=== PATIENT | male | born 1980 | race Caucasian/White ===

== ENCOUNTER 2018-02-24 11:05 | Emergency (ER) | payer MEDICAID ==
[~2018-02-24] VITALS: Ht 182.9 cm; Wt 102.8 kg
[2018-02-24 11:13] VITALS: BP 142/85; PULSE 63; RESP 18; TEMP 99; O2SAT 99
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
[2018-02-24] MEDS ORDERED: LIDOCAINE 2% JELLY 30 ML TUBE TOPICAL ONE (11:45)
[2018-02-24] MEDS ORDERED: TETANUS/DIPHTHERIA TOXOID ADULT 0.5 ML VIAL IM ONE (11:45)
[2018-02-24] MEDS ORDERED: SILVER SULFADIAZINE 1% CR 50 GM JAR TOPICAL ONE (12:00)
[2018-02-24] MEDS ORDERED: ONDANSETRON ODT 4 MG TAB PO ONE (12:00)
[2018-02-24] MEDS ORDERED: SILV1CRE20 TOPICAL (12:24)
[2018-02-24] MEDS ORDERED: CEPH-460 PO (12:24)
== END 2018-02-24 12:35 | disposition home or self-care (01) ==
LOC: PHEFT 11:05
DX: T24.211A Burn of second degree of right thigh, initial encounter (principal); T24.231A Burn of second degree of right lower leg, initial encounter; T23.241A Burn of second degree of multiple right fingers (nail), including thumb, initial encounter; F17.290 Nicotine dependence, other tobacco product, uncomplicated; X01.8XXA Other exposure to uncontrolled fire, not in building or structure, initial encounter; Z23 Encounter for immunization; Z88.0 Allergy status to penicillin
CPT/HCPCS: 16025; 90471; 90714

== ENCOUNTER 2018-02-28 10:50 | Emergency (ER) | payer MEDICAID ==
[~2018-02-28] VITALS: Ht 182.9 cm; Wt 103.0 kg
[~2018-02-28 10:50] MED LIST: CEPH-460 PO; SILV1CRE20 TOPICAL
[2018-02-28 10:53] VITALS: BP 155/81; PULSE 80; RESP 16; TEMP 98.2; O2SAT 99
[2018-02-28] MEDS ORDERED: LIDOCAINE 2% JELLY 30 ML TUBE TOPICAL ONE (11:15)
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
[2018-02-28 11:30] VITALS: BP 132/84; PULSE 68; RESP 18; TEMP 98.6; O2SAT 98
[2018-02-28] MEDS ORDERED: SILVER SULFADIAZINE 1% CR 50 GM JAR TOPICAL ONE (11:30)
[2018-02-28 11:42] LABS: AUTOMATED NEUTROPHIL # 5.3 TH/MM3 (1.8-7.7); BASOPHIL # 0.1 TH/MM3 (0-0.2); BASOPHIL % 0.8 % (0.0-2.0); EOSINOPHIL # 0.2 TH/MM3 (0-0.4); EOSINOPHIL % 2.2 % (0.0-4.0); HEMATOCRIT 41.4 % (39.0-51.0); HEMOGLOBIN 13.9 GM/DL (13.0-17.0); LYMPH % 23.1 % (9.0-44.0); LYMPHOCYTE # 1.8 TH/MM3 (1.0-4.8); MEAN CELL VOLUME 85.2 FL (80.0-100.0); MEAN CORPUSCULAR HEMOGLOBIN 28.6 PG (27.0-34.0); MEAN CORPUSCULAR HGB CONC 33.6 % (32.0-36.0); MEAN PLATELET VOLUME 8.5 FL (7.0-11.0); MONO % 6.7 % (0.0-8.0); MONOCYTE # 0.5 TH/MM3 (0-0.9); NEUT % 67.2 % (16.0-70.0); PLATELET COUNT 164 TH/MM3 (150-450); RED BLOOD COUNT 4.86 MIL/MM3 (4.50-5.90); RED CELL DISTRIBUTION WIDTH 11.3 % (11.6-17.2); WHITE BLOOD COUNT 7.9 TH/MM3 (4.0-11.0)
[2018-02-28 11:50] LABS: CHLORIDE 104 MEQ/L (98-107); SODIUM (NA) 138 MEQ/L (136-145)
[2018-02-28 11:53] LABS: ALBUMIN 3.4 GM/DL (3.4-5.0); BICARBONATE 32.5 MEQ/L (21.0-32.0); BLOOD UREA NITROGEN 11 MG/DL (7-18); CALCIUM 9.1 MG/DL (8.5-10.1); GLUCOSE,RANDOM 88 MG/DL (74-106)
[2018-02-28 11:56] LABS: ALT (GPT) 16 U/L (12-78)
[2018-02-28 11:57] LABS: AST (GOT) 13 U/L (15-37)
[2018-02-28 11:58] LABS: CREATININE 0.87 MG/DL (0.60-1.30); GLOMERULAR FILTRATION RATE 99 ML/MIN (>89); TOTAL BILIRUBIN ADULT 0.4 MG/DL (0.2-1.0); TOTAL PROTEIN 7.3 GM/DL (6.4-8.2)
[2018-02-28 11:59] LABS: ALKALINE PHOSPHATASE 71 U/L (45-117)
[2018-02-28] MEDS ORDERED: BACT800T5 PO (12:23)
== END 2018-02-28 12:38 | disposition home or self-care (01) ==
LOC: PHED 10:50
DX: T24.231D Burn of second degree of right lower leg, subsequent encounter (principal); X01 Exposure to uncontrolled fire, not in building or structure
CPT/HCPCS: 16025; 80053; 83605; 85025; 87040